=== PATIENT | male | born 1990 | race Two or more races ===

== ENCOUNTER 2022-07-02 22:53 | Emergency (ER) | payer MEDICAID ==
[~2022-07-02] VITALS: Ht 165.1 cm; Wt 89.0 kg
[2022-07-02 22:53] VITALS: BP 137/88
[2022-07-03] MEDS ORDERED: KETOROLAC TROMETH 60MG/2ML VIAL IM ONE (01:30)
[2022-07-03] MEDS ORDERED: FAMOTIDINE 20 MG TAB PO ONE (01:30)
[2022-07-03] MEDS ORDERED: ONDANSETRON ODT 4 MG TAB PO ONE (01:30)
[2022-07-03 01:54] LABS: Urine Bacteria NONE SEEN /hpf (None Seen); Urine Blood Negative /uL (Negative); Urine Specific Gravity 1.021 (1.001-1.035); Urine WBC 1 /hpf (0 - 3)
[2022-07-03 01:58] LABS: Basophils # (auto) 0 10 ^3/uL (0-0.2); Basophils % (auto) 0.3 % (0.0-2.0); Eosinophils # (auto) 0 10 ^3/uL (0-0.8); Eosinophils % (auto) 0.1 % (0.0-7.0); Hematocrit 48.8 % (41.0-53.0); Hemoglobin 16.4 g/dL (13.5-17.5); Lymphocytes # (auto) 1.4 10 ^3/uL (0.4-5.4); Mean Corpuscular Hgb Conc. 33.7 g/dL (32.0-36.0); Mean Corpuscular Volume 92.1 fL (80.0-100.0); Monocytes # (auto) 0.7 10 ^3/uL (0-1.3); Monocytes % (auto) 5.5 % (0.0-12.0); Neutrophils # (auto) 11.4 10 ^3/uL (1.6-8.6); Neutrophils % (auto) 84.1 % (37.0-80.0); Red Cell Distribution Width 13.1 % (11.8-14.3); White Blood Cell 13.6 10^3/uL (4.4-10.8)
[2022-07-03 02:15] LABS: Alanine Aminotransferase 52 U/L (16-61); Albumin 4.1 g/dL (3.4-5.0); Anion Gap 8 (5-15); Aspartate Aminotransferase 20 U/L (15-37); BUN/Creatinine Ratio 17.9; Blood Urea Nitrogen 19 mg/dL (7-18); Calcium 9.5 mg/dL (8.5-10.1); Carbon Dioxide 25 mmol/L (21-32); Chloride 102 mmol/L (98-107); GFR African American 106 mL/min; GFR Non-African American 88 mL/min; Glucose 120 mg/dL (74-106); Lipase 111 U/L (73-393); Magnesium 2.2 mg/dL (1.6-2.6); Potassium 4.1 mmol/L (3.5-5.1); Sodium 135 mmol/L (136-145)
[2022-07-03 02:19] LABS: Alkaline Phosphatase 85 U/L (45-117); Bilirubin, Total 0.3 mg/dL (0.2-1.0); Total Protein 8.7 g/dL (6.4-8.2)
[2022-07-03] MEDS ORDERED: ONDA-144 PO (04:07)
[2022-07-03] MEDS ORDERED: IBUP400T23 PO (04:07)
[2022-07-03] MEDS ORDERED: FAMO20TA10 PO (04:07)
== END 2022-07-03 04:53 | disposition home or self-care (01) ==
LOC: ER 22:53
DX: I88.0 Nonspecific mesenteric lymphadenitis (principal); R51.9 Headache, unspecified; Z79.1 Long term (current) use of non-steroidal anti-inflammatories (NSAID); Z79.899 Other long term (current) drug therapy
CPT/HCPCS: 36415; 70450; 74176; 80053; 81001; 83690; 83735; 85025; 96372; 99285; J1885; Q0162